=== PATIENT | female | born 1940 | race Two or more races ===

== ENCOUNTER 2022-07-10 06:30 | Day surgery (SDC) | payer OTHER ==
[~2022-07-10] VITALS: Ht 157.5 cm; Wt 52.6 kg
[~2022-07-10 06:30] MED LIST: ATORVASTATIN CA10 MG PO; DILTIAZEM ER240 M3 PO; JENTADUETO 2.51 EAC2 PO; LOSARTAN POTASS50 MG PO; PROAIR RESPICL90 MCG IH; PROTONIX40 MG PO
== END 2022-07-10 16:45 | disposition home or self-care (01) ==
LOC: CIR.AMB 06:30
PROVIDERS: ATTEND Colon & Rectal Surgery
DX: K62.9 Disease of anus and rectum, unspecified (principal); K64.8 Other hemorrhoids; I10 Essential (primary) hypertension; E11.9 Type 2 diabetes mellitus without complications; Z79.84 Long term (current) use of oral hypoglycemic drugs; Z86.73 Personal history of transient ischemic attack (TIA), and cerebral infarction without residual deficits; Z20.822 Contact with and (suspected) exposure to COVID-19; Z91.018 Allergy to other foods

== ENCOUNTER 2022-12-07 20:24 | Emergency (ER) | payer OTHER ==
[~2022-12-07] VITALS: Ht 157.5 cm; Wt 52.6 kg
== END 2022-12-08 00:03 | disposition home or self-care (01) ==
LOC: ER 20:24
DX: K52.9 Noninfective gastroenteritis and colitis, unspecified (principal); Z20.822 Contact with and (suspected) exposure to COVID-19